=== PATIENT | male | born 1955 | race African-American/Black ===

== ENCOUNTER 2021-08-13 14:14 | Observation (INO) | payer OTHER ==
[2021-08-13] MEDS ORDERED: SODIUM CHLORIDE 1,000 ML IV STA (16:26)
[2021-08-13] MEDS ORDERED: FOLIC ACID INJECTION - 1 MG, THIAMINE HCL 100 MG, MULTIVIT INJECTION ADULT 10 ML in SOD... IVPB ONE (16:26)
[2021-08-13 17:40] LABS: INR 1.2 (0.83-1.09); PROTHROMBIN TIME (PATIENT) 13.8 SEC (9.7-13.0)
[2021-08-13 17:47] LABS: BASO % 0.5 % (0-2.0); EOS % 0.8 % (0-4.5); HEMATOCRIT 38.3 % (35.4-49); HEMOGLOBIN 13.1 GM/dL (11.7-16.9); LYMPH % 15.1 % (8-40); MCH 32.9 pg (25.7-33.7); MCHC 34.3 g/dl (32.0-35.9); MEAN CELL VOLUME 95.7 fl (80-96); MEAN PLT VOLUME 9.7 fl (7.5-11.1); MONO % 15.7 % (3.8-10.2); NEUT % 67.9 % (42.8-82.8); PLATELET COUNT 281 10^3/uL (134-434); WHITE BLOOD COUNT 14.8 K/mm3 (4.0-10.0)
[2021-08-13 17:56] LABS: CHLORIDE 94 mmol/L (98-107); SODIUM 130 mmol/L (136-145)
[2021-08-13 17:59] LABS: CALCIUM 9.6 mg/dL (8.5-10.1)
[2021-08-13 18:00] LABS: ANION GAP 11 MMOL/L (8-16); BLOOD UREA NITROGEN 42.4 mg/dL (7-18); CO2 26 mmol/L (21-32); GLUCOSE,RANDOM 96 mg/dL (74-106); MAGNESIUM 2.9 mg/dL (1.8-2.4)
[2021-08-13 18:03] LABS: SGOT/AST 197 U/L (15-37); SGPT/ALT 56 U/L (13-61)
[2021-08-13 18:04] LABS: BILIRUBIN,TOTAL 1.2 mg/dL (0.2-1); TOT PROT 8.6 g/dl (6.4-8.2)
[2021-08-13 18:06] LABS: ALK PHOS 77 U/L (45-117)
[2021-08-13 18:26] LABS: URIC ACID 13.5 mg/dL (2.6-7.2)
[2021-08-13] MEDS ORDERED: ACETAMINOPHEN 325 MG TABLET (FP) PO ONE (19:00)
[2021-08-13] MEDS ORDERED: methylPREDNISolone NA SUCC 40 MG/1 ML VIAL IVPUSH ONE (19:00)
[2021-08-13 19:04] LABS: ERYTHROCYTE SEDIMENTATION RATE 37 mm/hr (0-20)
[2021-08-13] MEDS ORDERED: methylPREDNISolone NA SUCC 40 MG/1 ML VIAL ONE (20:07)
[2021-08-13] MEDS ORDERED: ACETAMINOPHEN 325 MG TABLET (FP) ONE (20:07)
[2021-08-13 21:47] LABS: CHLORIDE 97 mmol/L (98-107); SODIUM 134 mmol/L (136-145)
[2021-08-13 21:49] LABS: ALBUMIN 2.8 g/dl (3.4-5.0); ANION GAP 14 MMOL/L (8-16); BLOOD UREA NITROGEN 37.1 mg/dL (7-18); CALCIUM 8.4 mg/dL (8.5-10.1); CO2 24 mmol/L (21-32); GLUCOSE,RANDOM 138 mg/dL (74-106)
[2021-08-13 21:52] LABS: SGOT/AST 137 U/L (15-37); SGPT/ALT 48 U/L (13-61)
[2021-08-13 21:53] LABS: CREATININE 1.7 mg/dL (0.55-1.3)
[2021-08-13 21:54] LABS: BILIRUBIN,TOTAL 0.9 mg/dL (0.2-1); TOT PROT 7.6 g/dl (6.4-8.2)
[2021-08-13 21:55] LABS: ALK PHOS 73 U/L (45-117)
[2021-08-14] MEDS ORDERED: DEXTROSE 5%-0.45% SALINE 1,000 ML IV SCH (09:45)
[2021-08-14] MEDS ORDERED: POTASSIUM CHLORIDE TABS 20 MEQ TABLET.ER (FP) PO ONE ×2 (11:28→14:00)
[2021-08-14] MEDS ORDERED: SODIUM CHLORIDE 1,000 ML with POTASSIUM CHLORIDE 20 MEQ IV SCH (11:30)
[2021-08-14 12:21] VITALS: BMI 26.4
[2021-08-14 13:00] LABS: BASO % 0.3 % (0-2.0); HEMATOCRIT 36.1 % (35.4-49); HEMOGLOBIN 12.5 GM/dL (11.7-16.9); LYMPH % 7.1 % (8-40); MCH 33.5 pg (25.7-33.7); MCHC 34.8 g/dl (32.0-35.9); MEAN CELL VOLUME 96.3 fl (80-96); MEAN PLT VOLUME 9.7 fl (7.5-11.1); MONO % 6.5 % (3.8-10.2); NEUT % 86.1 % (42.8-82.8); PLATELET COUNT 245 10^3/uL (134-434); RBC 3.75 M/mm3 (4.00-5.60); RDW 14.5 % (11.9-15.9); WHITE BLOOD COUNT 14.3 K/mm3 (4.0-10.0)
[2021-08-14 13:23] LABS: ALBUMIN 2.6 g/dl (3.4-5.0); CALCIUM 9.2 mg/dL (8.5-10.1)
[2021-08-14] MEDS: HEPARIN NA (PORCINE) 5,000 UNITS/ML 1ML VIAL SQ SCH ×2 (13:23→21:07)
[2021-08-14] MEDS: POTASSIUM CHLORIDE 10 MEQ in SODIUM CHLORIDE 1,000 ML IV SCH (13:23)
[2021-08-14 13:24] LABS: BLOOD UREA NITROGEN 30.6 mg/dL (7-18)
[2021-08-14 13:26] LABS: CREATININE 1.3 mg/dL (0.55-1.3)
[2021-08-14 13:27] LABS: TOT PROT 7.7 g/dl (6.4-8.2)
[2021-08-14 13:28] LABS: BILIRUBIN,TOTAL 0.6 mg/dL (0.2-1)
[2021-08-14] MEDS: COLCHICINE 0.6 MG CAP PO SCH (22:31)
[2021-08-15] MEDS: POTASSIUM CHLORIDE 10 MEQ in SODIUM CHLORIDE 1,000 ML IV SCH ×3 (00:30→13:16)
[2021-08-15 07:56] LABS: CHOLESTEROL 186 mg/dL (50-200)
[2021-08-15 07:57] LABS: TRIGLYCERIDES 154 mg/dL (0-150)
[2021-08-15 07:58] LABS: LDL CHOLESTEROL (ONLY SJRH) 123 mg/dL (5-100)
[2021-08-15 07:59] LABS: HDL CHOLESTEROL 34 mg/dL (40-60)
[2021-08-15] MEDS: COLCHICINE 0.6 MG CAP PO SCH ×2 (09:07→21:18)
[2021-08-15] MEDS: HEPARIN NA (PORCINE) 5,000 UNITS/ML 1ML VIAL SQ SCH ×2 (09:07→21:18)
[2021-08-15 09:20] LABS: BASO % 0.4 % (0-2.0); EOS % 0.4 % (0-4.5); HEMATOCRIT 31.7 % (35.4-49); HEMOGLOBIN 11.3 GM/dL (11.7-16.9); LYMPH % 22.7 % (8-40); MCH 36.4 pg (25.7-33.7); MCHC 35.7 g/dl (32.0-35.9); MEAN CELL VOLUME 101.9 fl (80-96); MONO % 12.1 % (3.8-10.2); NEUT % 64.4 % (42.8-82.8); PLATELET COUNT 238 10^3/uL (134-434); RBC 3.11 M/mm3 (4.00-5.60); RDW 14.7 % (11.9-15.9); WHITE BLOOD COUNT 9.2 K/mm3 (4.0-10.0)
[2021-08-16] MEDS: POTASSIUM CHLORIDE 10 MEQ in SODIUM CHLORIDE 1,000 ML IV SCH (02:26)
[2021-08-16 05:53] VITALS: BP 127/67; PULSE 75; TEMP 97.6
[2021-08-16] MEDS: HEPARIN NA (PORCINE) 5,000 UNITS/ML 1ML VIAL SQ SCH (09:20)
[2021-08-16] MEDS: COLCHICINE 0.6 MG CAP PO SCH (09:20)
== END 2021-08-16 13:49 | disposition home or self-care (01) ==
LOC: JERFT 14:14 → UNDOADMOB 22:55 → INTOOBSV 22:55 → JERBED 22:55 → J7W 08-14 06:31 → JERBED 08-14 16:08
PROVIDERS: ADMIT Internal Medicine; ATTEND Internal Medicine
PROC: 3E023GC Introduction of Other Therapeutic Substance into Muscle, Percutaneous Approach (ICD-10-PCS; principal; 2021-08-14)
PROC: 3E033GC Introduction of Other Therapeutic Substance into Peripheral Vein, Percutaneous Approach (ICD-10-PCS; 2021-08-14)
PROC: 3E0337Z Introduction of Electrolytic and Water Balance Substance into Peripheral Vein, Percutaneous Approach (ICD-10-PCS; 2021-08-14)
PROC: 3E033GC Introduction of Other Therapeutic Substance into Peripheral Vein, Percutaneous Approach (ICD-10-PCS; 2021-08-14)
PROC: 3E023GC Introduction of Other Therapeutic Substance into Muscle, Percutaneous Approach (ICD-10-PCS; 2021-08-14)
PROC: 3E0337Z Introduction of Electrolytic and Water Balance Substance into Peripheral Vein, Percutaneous Approach (ICD-10-PCS; 2021-08-14)
DX: M62.82 Rhabdomyolysis (principal); N17.9 Acute kidney failure, unspecified; M10.9 Gout, unspecified; R53.1 Weakness; F10.10 Alcohol abuse, uncomplicated; Z29.9 Encounter for prophylactic measures, unspecified; I44.7 Left bundle-branch block, unspecified; R60.0 Localized edema; M79.673 Pain in unspecified foot; W06.XXXA Fall from bed, initial encounter; Y93.89 Activity, other specified; Y92.89 Other specified places as the place of occurrence of the external cause; R26.2 Difficulty in walking, not elsewhere classified
CPT/HCPCS: 36415; 70450-TC; 73070-TC-LT-FY; 73090-TC-LT-FY; 73110-TC-LT-FY; 73130-TC-LT-FY; 76775-TC; 80053; 80061; 82550; 82553; 83036; 83735; 84484; 84550; 85025; 85610; 85651; 86140; 93005; 93010; 93306-TC; 96361; 96365; 96372; 96375; 97116-GP; 97161-GP; 99285-25; C9803; G0378; J1644; U0003; U0005

== ENCOUNTER 2023-10-01 21:55 | Emergency (ER) | payer OTHER ==
[2023-10-01 22:14] VITALS: BP 114/65; PULSE 86; RESP 22; TEMP 97.8; BMI 27.7
[2023-10-01] MEDS ORDERED: DIPHTH,PERTUSS(ACELL),TET 0.5 ML DISP.SYRIN IM ONE (23:44)
[2023-10-01] MEDS: DIPHTH,PERTUSS(ACELL),TET 0.5 ML DISP.SYRIN IM ONE (23:47)
== END 2023-10-01 23:50 | disposition home or self-care (01) ==
LOC: JER 21:55
PROC: 3E0234Z Introduction of Serum, Toxoid and Vaccine into Muscle, Percutaneous Approach (ICD-10-PCS; principal; 2023-10-01)
DX: S00.212A Abrasion of left eyelid and periocular area, initial encounter (principal); S00.31XA Abrasion of nose, initial encounter; F10.129 Alcohol abuse with intoxication, unspecified; W01.198A Fall on same level from slipping, tripping and stumbling with subsequent striking against other object, initial encounter
CPT/HCPCS: 70450-TC; 72125-TC; 90471; 90715; 99284-25